=== PATIENT | male | born 1980 | race American Indian/Alaskan Native ===

== ENCOUNTER 2022-01-15 03:47 | Emergency (ER) | payer OTHER ==
[2022-01-15 07:47] VITALS: BP 126/87
[2022-01-15] MEDS ORDERED: oxyCODONE /ACETAMINOPHEN 5-325MG TAB PO ONE (09:24)
[2022-01-15] MEDS ORDERED: LIDOCAINE (1%) 10 MG/1 ML VIAL 20 ML MDV INFILTRATI ONE (09:24)
[2022-01-15] MEDS ORDERED: IBUPROFEN 800 MG TAB PO ONE (09:24)
--- NOTE | 2022-01-15 09:29 | Emergency Department Report ---
- General Chief complaint: Skin/Abscess/Foreign Body Stated complaint: ABSCESS UNDER RIGHT ARMPIT Source: patient Mode of arrival: Ambulatory Limitations: No Limitations - History of Present Illness Initial comments: 41-year-old male history of HIV on ART therapy presents to the emergency department with abscess in his right armpit. Patient reports he noticed it on as a tender spot got bigger and was placed Saturday. Went to the urgent care yesterday and was prescribed some Keflex and Tylenol antibiotics. States today he noticed the area is draining. Subjective fever yesterday, no nausea vomiting weakness dizziness headache. Denies prior history of skin infections . MD complaint: abscess/boil -: days(s) Severity: moderate Quality: sharp Consistency: constant Improves with: none Worsens with: palpation, movement Context: none Associated symptoms: denies other symptoms Treatments Prior to Arrival: none - Related Data Previous Rx's Medication Instructions Recorded Last Taken Type Ibuprofen [Motrin 800 MG tab] 800 mg PO Q8HR PRN #20 tablet 01/15/22 Unknown Rx Sulfamethoxazole/Trimethoprim 1 each PO BID #20 01/15/22 Unknown Rx [Bactrim DS TAB] traMADoL [Ultram 50 MG tab] 50 mg PO Q6HR PRN #12 tablet 01/15/22 Unknown Rx Allergies Allergy/AdvReac Type Severity Reaction Status Date / Time codeine Allergy Swelling Verified 01/15/22 04:05 Abscess Boil HPI - HPI Chief Complaint: Skin/Abscess/Foreign Body Stated Complaint: ABSCESS UNDER RIGHT ARMPIT Duration: 4 Days Location: Other (armpit) History: Yes Fever, Yes Pain, Yes Purulent Drainage, Yes Numbness, No Previous History Home Medications: Previous Rx's Medication Instructions Recorded Last Taken Type Ibuprofen [Motrin 800 MG tab] 800 mg PO Q8HR PRN #20 tablet 01/15/22 Unknown Rx Sulfamethoxazole/Trimethoprim 1 each PO BID #20 01/15/22 Unknown Rx [Bactrim DS TAB] traMADoL [Ultram 50 MG tab] 50 mg PO Q6HR PRN #12 tablet 01/15/22 Unknown Rx Allergies/Adverse Reactions: Allergies Allergy/AdvReac Type Severity Reaction Status Date / Time codeine Allergy Swelling Verified 01/15/22 04:05 ED Review of Systems ROS: Stated complaint: ABSCESS UNDER RIGHT ARMPIT Other details as noted in HPI Constitutional: no symptoms reported Eyes: as per HPI ENT: as per HPI Respiratory: denies: cough Endocrine: denies: excessive sweating, flushing Gastrointestinal: denies: abdominal pain, nausea, vomiting Genitourinary: denies: as per HPI Musculoskeletal: denies: back pain, arthralgia Skin: rash, lesions Neurological: denies: headache, weakness, numbness, paresthesias ED Past Medical Hx - Past Medical History Previous Medical History?: Yes Hx HIV: Yes - Surgical History Past Surgical History?: Yes Hx Appendectomy: Yes - Social History Smoking Status: Never Smoker - Medications Home Medications: Home Medications Medication Instructions Recorded Confirmed Last Taken Type Ibuprofen [Motrin 800 MG tab] 800 mg PO Q8HR PRN #20 tablet 01/15/22 Unknown Rx Sulfamethoxazole/Trimethoprim 1 each PO BID #20 01/15/22 Unknown Rx [Bactrim DS TAB] traMADoL [Ultram 50 MG tab] 50 mg PO Q6HR PRN #12 tablet 01/15/22 Unknown Rx ED Physical Exam - General Limitations: No Limitations General appearance: alert, in no apparent distress - Eye Eye exam: Present: normal appearance - ENT ENT exam: Present: normal exam - Neck Neck exam: Present: normal inspection - Respiratory Respiratory exam: Present: normal lung sounds bilaterally - Cardiovascular Cardiovascular Exam: Present: regular rate - GI/Abdominal GI/Abdominal exam: Present: soft - Rectal Rectal exam: Absent: deferred - Extremities Exam Extremities exam: Present: normal inspection, normal capillary refill - Back Exam Back exam: Present: normal inspection, full ROM - Neurological Exam Neurological exam: Present: alert, oriented X3 - Psychiatric Psychiatric exam: Present: normal affect - Skin Skin exam: Present: warm, dry, intact - Other Other exam information: 3/ 3 circular abscess right armpit ED Course Vital Signs 01/15/22 01/15/22 01/15/22 04:05 07:46 07:48 Temperature 98 F 97.7 F 97.7 F Pulse Rate 70 74 69 Respiratory 16 18 18 Rate Blood Pressure 126/87 Blood Pressure 117/79 126/87 [Left] O2 Sat by Pulse 99 99 99 Oximetry 01/15/22 10:46 Temperature Pulse Rate Respiratory Rate Blood Pressure Blood Pressure [Left] O2 Sat by Pulse 100 Oximetry - Reevaluation(s) Reevaluation #1: 01/15/22 09:51 - Procedure Description Procedures done: Incision and drainage of the abscess of his right armpit. Verbal consent obtained by patient, patient verbalizes understanding of risk involved including nerve, tissue bleeding complication. Area cleaned with Betadine, and h 2% lidocaine without epi, 11 blade scalpel, purulent drainage e xpelled, no indication for packing at this time. Wound care provided. Structured patient on home care remedy warm compress. Cultures collected and sent for evaluation. ED Medical Decision Making - Medical Decision Making 41-year-old male history of HIV presents with an abscess to his armpit, vital signs are stable, none toxic appearing male, no vomiting, no weakness dizziness headache, marked improvement of symptoms after incision and drainage. Plan is to discharge him home and I added some Bactrim to the Keflex he is already started taking yesterday prescribed by the urgent care. Pain management, warm compress, return precautions. Wound cultures pending. Also discussed with patient return precautions with understanding. Ambulate steadily out of the emergency department. Critical care attestation.: If time is entered above; I have spent that time in minutes in the direct care of this critically ill patient, excluding procedure time. ED Disposition Clinical Impression: Abscess of right arm Disposition: 01 HOME / SELF CARE / HOMELESS Is pt being admited?: No Does the pt Need Aspirin: No Condition: Stable Instructions: Skin Abscess, Skin Abscess, [id number] Prescriptions: Sulfamethoxazole/Trimethoprim [Bactrim DS TAB] 1 each PO BID #20 Ibuprofen [Motrin 800 MG tab] 800 mg PO Q8HR PRN #20 tablet PRN Reason: Pain , Severe (7-10) traMADoL [Ultram 50 MG tab] 50 mg PO Q6HR PRN #12 tablet PRN Reason: Pain Referrals: BETO DEL VALLE MD [Referring] - 3-5 Days
== END 2022-01-16 10:11 | disposition home or self-care (01) ==
LOC: ED 03:47
DX: L02.413 Cutaneous abscess of right upper limb (principal); Z21 Asymptomatic human immunodeficiency virus [HIV] infection status; Z90.89 Acquired absence of other organs; Z88.5 Allergy status to narcotic agent
CPT/HCPCS: 87076; 87116; 87186; 99283